=== PATIENT | female | born 1955 | race Caucasian/White ===

== ENCOUNTER 2021-10-28 16:39 | Outpatient (CLI) | payer BC, SELFPAY ==
[2021-10-28 17:05] LABS: Add Urine Microscopic? YES; Appearance Urine Clear (Clear); Basophils Absolute Auto 0.05 K/mm3 (0.00-0.10); Basophils Percent Auto 0.8 % (0.0-1.0); Bilirubin Urine Negative (Negative); Blood Urine Negative (Negative); Color Urine Light Yellow (Yellow); Eosinophils Percent Auto 4.6 % (1.0-6.0); Glucose Urine UA Negative (Negative); Hematocrit 41.6 % (35.0-49.0); Hemoglobin 13.5 g/dL (12.0-15.0); Immature Granulocyte Absolute 0.04 K/mm3 (0.00-0.00); Immature Granulocyte Percent A 0.6 % (0.0-0.0); Ketones Urine Negative (Negative); Leukocyte Esterase Ur 1+ (Negative); Lymphocytes Absolute Auto 1.34 K/mm3 (1.10-4.50); Lymphocytes Percent Auto 20.7 % (18.0-42.0); Mean Corpuscular HGB Conc 32.5 g/dL (32.0-36.0); Mean Corpuscular Volume 95.4 fL (78.0-102.0); Mean Platelet Volume 9.7 fl (9.2-11.8); Monocytes Absolute Auto 0.47 K/mm3 (0.10-0.90); Monocytes Percent Auto 7.3 % (2.0-11.0); Neutrophils Absolute Auto 4.3 K/mm3 (1.7-7.2); Nitrate Urine Negative (Negative); Platelet Count Result 303 K/mm3 (150-420); Protein Urine Negative (Negative); Red Blood Count 4.36 M/mm3 (4.20-5.40); Red Cell Distribution Width 13.3 % (11.6-14.4); Specific Grav Ur 1.025 (1.010-1.020); Urobilinogen Urine 0.2 mg/dL (0.2-1.0); White Blood Count 6.5 K/mm3 (4.8-10.8)
[2021-10-28 17:12] LABS: RBC Urine None seen /hpf (0-2); Squamous Epithelial Cell Urine Moderate /hpf (Few)
[2021-10-28 17:13] LABS: Bacteria Urine 1+ /hpf
[2021-10-28 17:34] LABS: Alanine Aminotransferase 40 U/L (14-59); Albumin Level 3.8 g/dL (3.4-5.0); Alkaline Phosphatase 96 U/L (46-116); Anion Gap 10 mmol/L (8-16); Aspartate Amino Transferase 22 U/L (15-37); Bilirubin,Total 0.7 mg/dL (0.00-1.00); Blood Urea Nitrogen 24 mg/dL (7-18); CRP 0.8 mg/dL (0.0-0.9); Calcium 8.8 mg/dL (8.5-10.1); Carbon Dioxide 29 mmol/L (21-32); Chloride 105 mmol/L (98-108); Estimated Glomerular Filt Rate 53; Free T3 2.52 pg/mL (2.18-3.98); Free T4 Free Thyroxine 1.01 ng/dL (0.76-1.46); Glucose 97 mg/dL (70-99); Osmolality Calculated 302 mOsm/kg (285-295); Potassium 4.1 mmol/L (3.5-5.1); Sodium 144 mmol/L (136-145); Thyroid Stimulating Hormone 4.54 uIU/mL (0.36-3.74); Total Protein 6.7 g/dL (6.4-8.2)
[2021-11-02 12:32] LABS: Tissue Transglutaminase IgG Ab <1.0 U/mL (<15.0)
[2021-11-02 18:56] LABS: Tissue Transglutaminase IgA Ab <1.0 U/mL (<15.0)
== END 2021-10-28 16:40 | disposition home or self-care (01) ==
LOC: CHSLAB 16:43
PROVIDERS: PCP Internal Medicine; Visit Provider Internal Medicine
DX: Z00.00 Encounter for general adult medical examination without abnormal findings (principal); R21 Rash and other nonspecific skin eruption; R19.7 Diarrhea, unspecified
CPT/HCPCS: 36415; 80053; 81001; 83516; 84439; 84443; 84481; 85025; 86140

== ENCOUNTER 2021-12-05 14:40 | Outpatient (CLI) | payer BC, SELFPAY ==
--- NOTE | 2021-12-05 14:48 | ECHO_ITS ---
Patient Info Name: Katherine So Age: 66 years : 1955 Gender: Female HR: 71 bpm BP: 187 / 91 mmHg Heart Rhythm: Sinus Rhythm Technical Quality: Fair Exam Date: 12/05/2021 2:42 PM Exam Location: [facility] Patient Status: Outpatient Admit Date: 12/05/2021 Staff Ordering Physician: Varun Stokes MD [employer]: Bertha Dickens RDCS Attending Provider: Varun Stokes MD Exam Type: CA echo doppler color flow Study Info Indications - PALPITATIONS, PRESYNCOPE Complete two-dimensional, color flow and Doppler transthoracic echocardiogram is performed. Summary 1. Complete two-dimensional, color flow and Doppler transthoracic echocardiogram is performed. 2. Left ventricular chamber dimension is normal. 3. Left ventricular systolic function is normal, estimated at 60-65%. 4. The left ventricular diastolic function is grade II diastolic dysfunction. 5. E/e' 12 is mildly elevated. 6. Left atrial chamber dimension is mildly enlarged. 7. There is mild mitral valve regurgitation. 8. There is trace tricuspid valve regurgitation. 9. No pulmonary hypertension, estimated pulmonary arterial systolic pressure is 24 mmHg. Left Ventricle E/e' 12 is mildly elevated. Left ventricular chamber dimension is normal. Left ventricular systolic function is normal, estimated at 60-65%. The left ventricular diastolic function is grade II diastolic dysfunction. Right Ventricle Right ventricular chamber dimension is normal. Right ventricular systolic function is normal. Left Atria Left atrial chamber dimension is mildly enlarged. Right Atria Right atrial chamber dimension is normal. Aortic Valve The aortic valve is trileaflet. There is no aortic valve stenosis. There is no aortic valve regurgitation. Pulmonic Valve There is no pulmonic regurgitation. Mitral Valve There is no mitral valve stenosis. There is mild mitral valve regurgitation. Tricuspid Valve There is trace tricuspid valve regurgitation. No pulmonary hypertension, estimated pulmonary arterial systolic pressure is 24 mmHg. Pericardium/Pleural There is no pericardial effusion. Inferior Vena Cava Normal inferior vena cava with >50% collapse upon inspiration consistent with normal right atrial pressure, 5 mmHg. Aorta The aortic root size at the sinus of Valsalva is normal. Left Ventricular Outflow Tract Name Value Normal LVOT 2D LVOT Diameter 2.0 cm LVOT Doppler LVOT Peak Velocity 111 cm/s LVOT Peak Gradient 5 mmHg LVOT Mean Gradient 2 mmHg LVOT VTI 23 cm LVOT VTI/AV VTI Ratio 0.8 LVOT Stroke Volume 70 ml Pulmonic Valve Name Value Normal RVOT Doppler RVOT Peak Gradient 2 mmHg PV Dopp
--- NOTE | 2022-01-05 13:28 | WPDHOLTEREM ---
Holter/Event Monitor Holter/Event Monitor Date of procedure: 12/05/21 Holter/Event Procedure: Event Monitor Indications: Palpitations Conclusion: 1. 21 days event monitor between 12/05/21-01/03/22. There are 23 available transmissions for analysis. 2. Predominant rhythm is sinus rhythm. HR range 50-184 bpm; average HR 85 bpm. 3. There are occasional premature supraventricular complexes with total burden of 1%. There is 1 episode of supraventricular tachycardia at 184 bpm lasting 13 seconds. 4. There are occasional premature ventricular complexes with total burden of 1%. No ventricular tachycardia. 5. No significant pauses greater than 2 seconds. 6. Patient reports symptoms of skipped beats and heart racing which demonstrate sinus rhythm, HR range 70-101 bpm and 1 PAC.
== END 2021-12-05 14:41 | disposition home or self-care (01) ==
LOC: CHSIMG 14:41
PROVIDERS: PCP Internal Medicine; Visit Provider Internal Medicine
DX: R00.2 Palpitations (principal); R55 Syncope and collapse
CPT/HCPCS: 93270; 93306